=== PATIENT | female | born 1990 | race African-American/Black ===

== ENCOUNTER 2018-05-26 11:43 | Day surgery (SDC) | payer BC ==
[2018-05-25 15:24] VITALS: BMI 22.7
[2018-05-26] MEDS ORDERED: DEXAMETHASONE SOD PHOSPHATE 4 MG/1 ML VIAL ONE (13:26)
[2018-05-26] MEDS ORDERED: PROPOFOL 20 ML ONE (13:26)
[2018-05-26] MEDS ORDERED: MIDAZOLAM HCL 2 MG/2 ML SINGLE DOSE VIAL ONE (13:26)
[2018-05-26] MEDS ORDERED: LIDOCAINE HCL/PF 2% SDV 5ML VIAL ONE (13:26)
[2018-05-26] MEDS ORDERED: ceFAZolin SODIUM 1 GM VIAL ONE (14:09)
[2018-05-26] MEDS ORDERED: ceFAZolin SODIUM 1 GM VIAL IVPB ONE (14:10)
[2018-05-26] MEDS ORDERED: KETOROLAC TROMETHAMINE 30 MG/1 ML VIAL ONE (14:17)
[2018-05-26] MEDS ORDERED: IBUPROFEN 600 MG TABLET (FP) PO PRN (14:23)
--- NOTE | 2018-05-26 14:27 | OP ---
Operative Note - Note: Operative Date: 05/26/18 Pre-Operative Diagnosis: Elective surgical Ab at 6wk Operation: Suction, D&C (surgical Tx of ) Findings: Small AV uterus, no RPOC at end of procedure Post-Operative Diagnosis: Same as Pre-op Surgeon: James Alejandre Anesthesiologist/BOTTLE INSPECTOR: Jovan Mao (Dr. Raphael) Anesthesia: General Specimens Removed: POC Estimated Blood Loss (mls): 30 Blood Volume Replaced (mls): 0 Fluid Volume Replaced (mls): 300 Operative Report Dictated: Yes
[2018-05-26] MEDS ORDERED: ONDANSETRON 4 MG/2 ML VIAL IVPUSH PRN (14:28)
[2018-05-26] MEDS ORDERED: oxyCODONE HCL 5 MG TABLET PO PRN (14:28)
[2018-05-26] MEDS ORDERED: LACTATED RINGERS SOLUTION 1,000 ML IV SCH (14:30)
[2018-05-26 15:55] VITALS: BP 110/50; PULSE 60; TEMP 97.8
--- NOTE | 2018-05-27 10:07 | OP ---
DATE OF OPERATION: 05/26/2018 PREOPERATIVE DIAGNOSIS: Elective surgical at 6 weeks. POSTOPERATIVE DIAGNOSIS: Elective surgical at 6 weeks. PROCEDURE: Induced surgical via suction dilation and curettage. SURGEON: Tavo Alejandre MD LIVESTOCK HAULIER: None. FLAME BURNER: Shantel Aldana CRNA ANESTHESIOLOGIST: Yue Arellano MD, supervising. ANESTHESIA: General. COMPLICATIONS: None. ESTIMATED BLOOD LOSS: 30 mL. INTRAVENOUS FLUID: 300 m L. PATHOLOGY: Products of conception. FINDINGS: Examination under anesthesia revealed a small anteverted uterus. Products of conception were noted on suction curettage. No retained products of conception were noted at the end of the procedure. Uncomplicated surgery. DESCRIPTION OF PROCEDURE: The patient was met preoperatively. Risks, benefits, and alternatives of surgery were discussed in details. All questions were answered. The patient was then brought to the OR with the IV running. She was placed on the surgical table in the supine position. General anesthesia was achieved without difficulty. The patient was then placed in a dorsal lithotomy position using adjustable Vega stirrups. She was examined under anesthesia with the findings as described above. A time-out procedure was conducted as per standard protocol. The patient was then prepped and draped in the usual sterile fashion. A sterile speculum was introduced inside the vagina with good visualization of the cervix. The cervix was grasped with a single-tooth tenaculum. The cervical os was gently dilated to accommodate size 23 [place] dilator. A 7-mm curved curette was then used for suction curettage. The uterus was then gently explored to assure no retained products of conception. All of the instruments were then removed from the patient. Good hemostasis was noted. Sponge, lap, and instrument counts were correct. The patient was returned to supine position. She was then transferred to the recovery room in stable condition and awake. TAVO ALEJANDRE M.D. [id number]
--- NOTE | 2018-05-28 15:33 | PATH ---
Surgical Pathology Report Patient Name: COLBY ALEXANDER Med. Rec. #: [id number] /Age/Gender: 1990 (Age: 27) / F Account: [id number] Location: [facility] [place] [facility] Taken: 05/26/2018 Received: 05/27/2018 Reported: 05/28/2018 Physicians: James Alejandre M.D. Specimen(s) Received PRODUCTS OF CONCEPTION Clinical History Unwanted Final Diagnosis PRODUCTS OF CONCEPTION, DILATION AND CURETTAGE: IMMATURE CHORIONIC VILLI AND DECIDUA CONSISTENT WITH PRODUCTS OF CONCEPTION. Electronically Signed Mecca Urban M.D. Gross Description Received in formalin labeled "products of conception," is a 7.0 x 6.8 x 1.0 cm aggregate of lindsey-brown soft tissue fragments. Villous tissue is identified. No definite somatic tissue is identified. A medicare sales representative portion is submitted in one cassette. /05/27/2018 saudi05/27/2018
== END 2018-05-26 15:55 | disposition home or self-care (01) ==
LOC: JASU-SURG 11:43
PROVIDERS: ATTEND Obstetrics & Gynecology
PROC: 10A07Z6 Abortion of Products of Conception, Vacuum, Via Natural or Artificial Opening (ICD-10-PCS; principal; 2018-05-26 13:30)
DX: Z33.2 Encounter for elective termination of pregnancy (principal)
CPT/HCPCS: 88304-TC; 94760